=== PATIENT | male | born 1985 | race Hispanic/Latino ===

== ENCOUNTER 2022-12-31 12:57 | Emergency (ER) | payer SELFPAY ==
[~2022-12-31] VITALS: Ht 172.7 cm; Wt 131.5 kg
[2022-12-31] MEDS ORDERED: IBUPROFEN 600 MG TAB PO STA (13:12)
[2022-12-31] MEDS ORDERED: HYDROCODONE/APAP 7.5MG-325MG 1 EA TAB PO ONE (13:15)
[2022-12-31] MEDS ORDERED: DEXAMETHASONE SOD PHOS 10 MG/1 ML VIAL IM ONE (13:15)
[2022-12-31] MEDS ORDERED: METHOCARBAMOL 750 MG TAB PO ONE (13:15)
[2022-12-31] MEDS ORDERED: METHOCARBAMOL 500 MG TAB ONE (13:30)
[2022-12-31] MEDS ORDERED: IBUPROFEN 400 MG TAB ONE (13:30)
[2022-12-31] MEDS ORDERED: METHOCARBAMOL750 MG PO (14:52)
[2022-12-31] MEDS ORDERED: IBUPROFEN600 MG PO (14:52)
[2022-12-31] MEDS ORDERED: PREDNISONE50 MG PO (14:52)
== END 2022-12-31 15:06 | disposition home or self-care (01) ==
LOC: ER 13:03
DX: M54.6 Pain in thoracic spine (principal); M54.50 Low back pain, unspecified; M62.830 Muscle spasm of back
CPT/HCPCS: 72070; 72100; 99283; J1100